=== PATIENT | female | born 1950 | race Caucasian/White ===

== ENCOUNTER 2022-11-12 08:53 | Emergency (ER) | payer OTHER, SELFPAY ==
[2022-11-12 09:08] VITALS: BP 146/75; PULSE 80; RESP 18; TEMP 37.3; O2SAT 100; BMI 27.4
--- NOTE | 2022-11-12 09:18 | US_ITS ---
WS: [id number] INDICATION: Swelling evaluate for abscess TECHNIQUE: Ultrasound soft tissue RIGHT rawls FINDINGS: Ultrasound soft tissue RIGHT rawls area of concern. In the area of concern, RIGHT rawls, ther e is a complex septated fluid collection measuring approximately 2.4 x 1.0 x 2.3 cm suspicious for ab scess. This has a complex appearance with internal septations and echogenic debris. This could also r epresent hematoma if history of trauma. US/US soft tissue/extremity [id number] IMPRESSION: Complex septated fluid collection in the area of concern likely abs cess. If history of trauma this could also represent hematoma
--- NOTE | 2022-11-12 09:18 | XRR_ITS ---
PROCEDURE INFORMATION: Exam: XR Right Tibia and Fibula Exam date and time: 11/12/2022 9:36 AM Age: 72 years old Clinical indication: Injury or trauma; Blunt trauma; Lower leg; Right; Injury details: 3 weeks ago she had a push mower run into her leg; Additional info: Injury/swelling distal tib TECHNIQUE: Imaging protocol: Radiologic exam of the right tibia and fibula. Views: 2 views. COMPARISON: No relevant prior studies available. FINDINGS: Bones/joints: Normal. Soft tissues: Normal. XR/XR tibia fibula RT 2V [id number] IMPRESSION: No acute findings.
--- NOTE | 2022-11-12 09:19 | W.ED.EXTPRO ---
HPI - Extremity Problem General: Chief complaint: Extremity Injury, Lower Stated complaint: Right leg injury, Hot to touch Time Seen by Provider: 11/12/22 09:04 Source: patient Mode of arrival: ambulatory Limitations: no limitations History of Present Illness: Patient is a 72-year-old female presents to ED today with a complaint of a wound to her right lower extremity. She states about 3 weeks ago she had a push mower run into her leg. She states the push mower was not on at the time but that the impact caused a laceration/abrasion to the right lower leg. Since then she has noticed redness and swelling surrounding the laceration/abrasion. She states she has been seen at the [facility] and was initially placed on 7 days of Keflex. She felt like symptoms had not improved so they then prescribed her 10 days of Augmentin which she is currently taking. Patient states redness has definitely improved while on the Augmentin but she is concerned that something needs to be drained. She is also reporting low-grade fevers and chills. She has not noticed any calf pain or swelling. She has no shortness of breath or difficulty breathing. He has not noticed any drainage from the wound. MD Complaint: extremity pain Onset (ago): week(s) Pain Consistency: constant Location: right and lower extremity Radiation: none Relieving factors: nothing Exacerbating factors: nothing Associated symptoms: Reports fever(s) (100.0); Deny chest pain Review of Systems Const: Reports: fever(s) (100.0), chills and body aches Card: Denies: chest pain Resp: Denies: dyspnea GI: Denies: abdominal pain, nausea, vomiting or diarrhea Musc: Reports: extremity pain and extremity swelling; Denies: neck pain, back pain, joint pain, joint swelling, joint redness, joint warmth or limited range of motion Skin/Breast: Reports: other (wound to R LE) Neuro: Denies: numbness in extremities, weakness in extremities or sensory changes Physical Exam Const: COMMON NORMALS: no acute distress, average body habitus, patient oriented x3, no limitations, healthy appearing, alert and well nourished Resp: COMMON NORMALS: normal respiratory effort and clear to auscultation bilaterally AUSCULTATION: clear to auscultation bilaterally Cardio: COMMON NORMALS: regular rate and regular rhythm RATE: regular rate RHYTHM: regular rhythm Extremity: EXTREMITY IMAGE (FRONT): 1. 3 week old/healing laceration vs deep linear abrasion with some mild surrounding edematous tissue and very scant erythema/warmth; no fluctuance to suggest underlying abscess; no drainage from the wound; no lymphangitic streaking; entire affected area measuring approximately 5cm Neuro: COMMON NORMALS: patient oriented x3, moves all extremities, no focal motor deficits and no sensory deficits noted SENSORIUM/ORIENTATION: Yes alert Skin: NARRATIVE SKIN EXAM: see above for pertinent skin findings Course Vital Signs: Vital signs: Vital Signs Temperature 99.1 F 11/12/22 09:08 Pulse Rate 80 11/12/22 09:08 Respiratory Rate 18 11/12/22 09:08 Blood Pressure 146/75 11/12/22 09:08 Pulse Oximetry 98 11/12/22 11:22 Oxygen Delivery Me thod Room Air 11/12/22 11:22 MDM - Extremity (Nontraumatic) Medical Decision Making XR negative. US ultrasound did show a small complex fluid collection-abscess vs hematoma. Given history of trauma I would favor hematoma. I did aspirate area of concern and was only able to express a small amount of blood. At this time she seems to be getting a clinical response from the Augmentin so we will have her continue this. Recommend follow-up with primary care later this week for re-evaluation. Lab Data 11/12/22 11:03 11/12/22 11:03 Radiology Impressions Soft Tissue Ultrasound 11/12/22 09:18 IMPRESSION: Complex septated fluid collection in the area of concern likely abscess. If history of trauma this could also represent hematoma Tibia/Fibula X-Ray 11/12/22 09:18 IMPRESSION: No acute findings. Laboratory Results WBC 12.0 10^3/uL (4.0-10.0) H 11/12/22 11:03 RBC 4.82 10^6/uL (4.1-5.3) 11/12/22 11:03 Hgb 11.9 g/dL (11.5-15.3) 11/12/22 11:03 Hct 37.5 % (37.0-47.0) 11/12/22 11:03 MCV 77.8 fl (81-99) L 11/12/22 11:03 MCH 24.7 pg (28.0-34.0) L 11/12/22 11:03 MCHC 31.7 g/dL (30.0-36.0) 11/12/22 11:03 RDW 19.0 % (12.1-15.1) H 11/12/22 11:03 Plt Count 193 10^3/cmm (130-400) 11/12/22 11:03 MPV 10.0 fL (7.4-10.4) 11/12/22 11:03 Neut % (Auto) 84.5 % 11/12/22 11:03 Lymph % (Auto) 8.3 % 11/12/22 11:03 Becker % (Auto) 6.2 % 11/12/22 11:03 Eos % (Auto) 0.2 % 11/12/22 11:03 Baso % (Auto) 0.4 % 11/12/22 11:03 Neut # (Auto) 10.14 10^3/uL (1.8-7.7) H 11/12/22 11:03 Lymph # (Auto) 1.0 10^3/uL (0.8-4.8) 11/12/22 11:03 Becker # (Auto) 0.7 10^3/uL (0.2-0.9) 11/12/22 11:03 Eos # (Auto) 0.0 10^3/uL (0.0-0.8) 11/12/22 11:03 Baso # (Auto) 0.1 10^3/uL (0.0-0.1) 11/12/22 11:03 Nucleated RBC % (auto) 0 % 11/12/22 11:03 Nucleated RBCs # 0.0 /100WBC 11/12/22 11:03 Sodium 134 mmol/L (136-145) L 11/12/22 11:03 Potassium 3.4 mmol/L (3.5-5.1) L 11/12/22 11:03 Chloride 103 mmol/L (98-107) 11/12/22 11:03 Carbon Dioxide 18 mmol/L (22-29) L 11/12/22 11:03 Anion Gap 16.4 (5-19) 11/12/22 11:03 BUN 18 mg/dL (8-23) 11/12/22 11:03 Creatinine 1.1 mg/dL (0.5-0.9) H 11/12/22 11:03 GFR Calculation Not Reportable 11/12/22 11:03 Glucose 110 mg/dL (65-115) 11/12/22 11:03 Calculated Osmolality 281 mOsm/kg (285-295) L 11/12/22 11:03 Calcium 8.5 mg/dL (8.5-10.5) 11/12/22 11:03 Total Bilirubin 0.3 mg/dL (0.15-1.2) 11/12/22 11:03 AST 26 U/L (0-32) 11/12/22 11:03 ALT 12 U/L (0-33) 11/12/22 11:03 Alkaline Phosphatase 82 U/L (35-105) 11/12/22 11:03 C-Reactive Protein 120.5 mg/L (0.0-4.9) H 11/12/22 11:03 Total Protein 6.5 g/dL (6.6-8.7) L 11/12/22 11:03 Albumin 3.8 g/dL (3.5-5.2) 11/12/22 11:03 Globulin 2.7 g/dL (1.3-4.6) 11/12/22 11:03 Discharge Plan Discharge Patient Disposition: Home Clinical Impression: Infected abrasion of right leg Qualifiers: Encounter type: initial encounter Qualified Code(s): S80.811A - Abrasion, right lower leg, initial encounter Condition: Stable Prescriptions: No Action oxybutynin chloride 10 mg Tablet Extended Release 24hr 10 mg PO QAM amoxicillin-pot clavulanate 875-125 mg tablet 1 tab PO BID Rx Instructions: for 10 days (rx filled 11/05/22) Discharge Orders: Discharge ED (Routine); Ordered 11/12/22 Ordered By: Gudelia Miranda Referrals: Hayley Rodriguez FNP [Primary Care Provider] - Activity Restrictions/Additional Instructions: As we discussed continue your current antibiotics as you stated this has seemed to improve the redness around the wound. Please follow-up with primary care later this week for re-evaluation if symptoms do not continue to be improving. Coding Level of Care Code ED Financial Consultant for Kierra Coello
[2022-11-12] MEDS: ondansetron 4 MG Tablet PO (11:13)
[2022-11-12 11:22] VITALS: O2SAT 98
[2022-11-12 11:26] LABS: Basophils # 0.1 10^3/uL (0.0-0.1); Basophils % 0.4 %; Eosinophils % 0.2 %; Hematocrit 37.5 % (37.0-47.0); Hemoglobin 11.9 g/dL (11.5-15.3); Lymphocytes % 8.3 %; Mean Corpuscular HGB Conc 31.7 g/dL (30.0-36.0); Mean Corpuscular Hemoglobin 24.7 pg (28.0-34.0); Mean Corpuscular Volume 77.8 fl (81-99); Monocytes # 0.7 10^3/uL (0.2-0.9); Monocytes % 6.2 %; Neutrophils # 10.14 10^3/uL (1.8-7.7); Neutrophils % 84.5 %; Nucleated Red Blood Cells % 0 %; Platelet Count 193 10^3/cmm (130-400); Red Blood Count 4.82 10^6/uL (4.1-5.3)
[2022-11-12 11:45] LABS: Alanine Aminotransferase 12 U/L (0-33); Albumin Level 3.8 g/dL (3.5-5.2); Alkaline Phosphatase 82 U/L (35-105); Anion Gap 16.4 (5-19); Aspartate Amino Transferase 26 U/L (0-32); Blood Urea Nitrogen 18 mg/dL (8-23); C Reactive Protein 120.5 mg/L (0.0-4.9); Calcium 8.5 mg/dL (8.5-10.5); Carbon Dioxide 18 mmol/L (22-29); Chloride 103 mmol/L (98-107); Globulin 2.7 g/dL (1.3-4.6); Glucose 110 mg/dL (65-115); Osmolality Calculated 281 mOsm/kg (285-295); Potassium 3.4 mmol/L (3.5-5.1); Sodium 134 mmol/L (136-145); Total Bilirubin 0.3 mg/dL (0.15-1.2); Total Protein 6.5 g/dL (6.6-8.7)
== END 2022-11-12 12:05 | disposition home or self-care (01) ==
PROVIDERS: Emergency Provider Physician Assistant; PCP Nurse Practitioner
DX: S80.811A Abrasion, right lower leg, initial encounter (principal); L08.9 Local infection of the skin and subcutaneous tissue, unspecified; W31.89XA Contact with other specified machinery, initial encounter; Y93.H2 Activity, gardening and landscaping; Y92.9 Unspecified place or not applicable
CPT/HCPCS: 10160; 36415; 73590; 76882; 80053; 85025; 86140; 99285; Q0162

== ENCOUNTER 2024-05-27 07:31 | Outpatient (CLI) | payer OTHER, SELFPAY ==
--- NOTE | 2024-05-27 07:37 | MR_ITS ---
WS: [id number] MRI LEFT SHOULDER HISTORY: LEFT SHOULDER PAIN COMPARISON: None available. TECHNIQUE: Multiplanar sequences of the shoulder joint are submitted. Moderate AC joint arthritis. Narrowing of the AC joint with small hypertrophic osteophytes. Downslopi ng acromion with moderate impingement upon the supraspinatus tendon over the humeral head. Small amou nt of fluid in the subacromial and subdeltoid bursa. No os acromion. Normal biceps tendon. No rotator cuff muscle atrophy or edema. Small insertion site tear in the distal supraspinatus tendon . No additional tendon tears. Mild narrowing of the glenohumeral joint. No subchondral cystic changes . No labral tear. MR/MR shoulder LT wo con* [id number] IMPRESSION: 1. Moderate AC joint arthritis. 2. Moderate subacromial impingement by downsloping acromion. 3. Very small insertion site tear of the distal supraspinatus tendon. 4. Mild glenohumeral joint narrowing.
== END 2024-05-27 07:32 | disposition home or self-care (01) ==
LOC: RAD 07:33
PROVIDERS: PCP Nurse Practitioner; Visit Provider Nurse Practitioner
DX: M13.812 Other specified arthritis, left shoulder (principal); R93.6 Abnormal findings on diagnostic imaging of limbs; M25.712 Osteophyte, left shoulder; M75.102 Unspecified rotator cuff tear or rupture of left shoulder, not specified as traumatic
CPT/HCPCS: 73221